=== PATIENT | male | born 1965 | race Caucasian/White ===

== ENCOUNTER 2025-05-10 07:11 | Emergency (ER) | payer MEDICARE, SELFPAY ==
[2025-05-10 07:12] VITALS: BP 165/97
--- NOTE | 2025-05-10 07:21 | ED.GENMED ---
History of Present Illness
General
Chief Complaint: Chest Pain
Source: patient
Exam Limitations: none
Time Seen by Provider: 05/10/25 07:22
History of Present Illness
History of Present Illness:
60-year-old male woke with chest pressure at 630 this morning. No radiation some mild nausea no shortness of breath. Has occasional PVCs but this has been an ongoing chronic issue. No syncope near syncope no heart racing. Currently asymptomatic.
Symptoms lasted about 30 minutes. Similar episode yesterday morning.
Past History
Past History
ED Past Medical History: HTN, Hypercholesterolemia and Other
ED Past Surgical History: Other
Social History
Tobacco: Non-smoker
Alcohol: Occasional
Drug: None
Personal: Other ()
Living: with family
Employment: Employed
Family History
Family History: CAD
Review of Systems
Review of Systems
All Other Systems: Not applicable
Constitutional: Denies fever or chills
Respiratory: Reports no symptoms
ABD/GI: Reports no symptoms
Phy Exam
Physical Exam
Physical Exam:
GENERAL: Alert and oriented in no apparent distress. Initially was setting up a computer at the table beside the hospital bed.
EYE: Orbits normal.
NECK: Supple
CARDIAC: Regular rate and rhythm without any obvious murmurs.
LUNGS: Clear breath sounds,normal
ABDOMEN: Soft, without focal tenderness or distention. Elevated BMI
NEUROLOGICAL: Alert and oriented , grossly non-focal
SKIN: Warm and dry, no rash or lesion, no discoloration, skin intact.
MUSCULOSKELETAL: No edema,no deformity.Good color
PSYCH: Normal and appropriate interaction.
Scores
Heart Score for Chest Pain Patients
STEMI patient?: No
History: Slightly or Non-Suspicious
ECG: Normal
Age: >45 - <65 years
Risk Factors: >/= 3 Risk Factors or History of CAD
Troponin: </= Normal Limit
Heart Score for Chest Pain Patients: 3
Heart Score Risk: 2.5% MACE over next 6 weeks
Course
Orders/Labs/Results
Orders:
Orders
05/10/25 07:16
Electrocardiogram (*1) Urgent
Reason for Study: Chest Pain
EKG- Treatment ONCE
05/10/25 07:30
Cardiac Monitoring- Treatment ONCE
IV Insert/Care/Rem.- Treatment PRN
Pulse Ox/cont/shift [RESP] Stat
Quantity: 1
05/10/25 07:43
Complete Blood Count/With Diff Urgent
Comprehensive Metabolic Panel Urgent
D-Dimer Urgent
Lipase Urgent
Troponin I Urgent
05/10/25 08:11
CXR2 [CR Chest - 2 Views ] Urgent
Comment:
Reason For Exam: cp
05/10/25 08:42
EKG- Treatment ONCE
05/10/25 10:55
Troponin I Urgent
05/10/25 11:00
Electrocardiogram (*1) Stat
Reason for Study: Other
Other Reason for Exam: chest pain
Abnormal Lab Results
05/10/25
07:43
RBC 4.59 L 10^6/uL
(4.70-6.10)
Chloride 110 H mmol/L
(98-107)
BUN 26 H mg/dl
(9-20)
Glucose 130 H mg/dl
(70-99)
05/10/25 07:43
05/10/25 07:43
Vital Signs
Initial and Last Documented VS:
Initial Vital Signs
Temp Pulse Resp BP Pulse Ox
98.5 F 87 18 165/97 94
05/10/25 07:12 05/10/25 07:12 05/10/25 07:12 05/10/25 07:12 05/10/25 07:12
Last Documented Vital Signs
Temp Pulse Resp BP Pulse Ox
98.5 F 74 20 141/88 93
05/10/25 07:12 05/10/25 10:00 05/10/25 10:00 05/10/25 10:00 05/10/25 10:00
MDM/Problems Addressed
Differential Diagnosis Includes:
Patient with an episode today and yesterday morning of nonexertional chest pressure. Moderate cardiac risk factors including hypertension cholesterol and family history. This chest pressure is not exertional. Exam is unremarkable. Patient feels
his left foot might be mildly swollen. Doubt PE or DVT but will check D-dimer as a screen. Warrants repeat cardiac testing in 3 hours
*Pulse Oximetry
SaO2: 94
Oxygen Mode of Delivery: Room air
Patient hypoxic: no
*EKG
Interpreted by ED Provider?: Yes
Interpretation: normal
Comparison EKG: no changes
Heart Rate: 77
Rate: normal
Rhythm: sinus
[place]: normal axis
Interval: normal interval
QRS Pattern: normal QRS
Ischemia: no ischemia
*Critical Care Note
Total Time (30-74mins, 75-104mins- exclusive of procedures): Not Applicable
Update Note
Update Note:
Repeat EKG normal sinus rhythm. No acute changes. Repeat troponin negative. Patient currently sitting up watching his computer screen. Nontoxic no distress. No current symptoms. Not describing any infectious symptoms. Highly doubt pneumonia.
Close outpatient cardiac follow-up
ED Attending Note
-
Portions of this chart may have been created with voice recognition software.� Occasional wrong word or��sound alike� substitutions may have occurred due to the inherent limitations of voice recognition software.
Discharge Plan
Departure
Patient Disposition: Home (Routine Discharge)
Date of Disposition: 05/10/25
Time of Disposition: 12:25
Patient with high blood pressure during this ER visit?: Yes
Discharge Problem:
Intermittent chest pain, Atelectasis left lung base
Instructions: Chest Pain CBC Follow Up, BLOOD PRESSURE
Prescriptions:
New
doxycycline hyclate 100 mg capsule
100 mg PO BID 10 Days Qty: 20 0RF
No Action
alprazolam 1 MG tablet
1 mg PO BID
omeprazole 20 MG capsule,delayed release(DR/EC)
20 mg PO QPM
aspirin 81 MG tablet,chewable
81 mg PO QPM
doxazosin 2 MG tablet
4 mg PO QPM
rosuvastatin 20 MG tablet
20 mg PO QPM
Referrals:
UNKNOWN - PT DOES,NOT KNOW [Family Provider]
Activity Restrictions/Additional Instructions:
The cardiac group should call you tomorrow for close follow-up
I gave you a prescription for an antibiotic. However I do not feel this is likely to be a pneumonia. Only start the antibiotic with more respiratory symptoms cough congestion fever.
Interventions
Interventions:
*Risk Screen - Suicide Last Done: 05/10/25 07:16
*General Assessment Last Done: 05/10/25 07:38
*Neglect/Abuse Screening Last Done: 05/10/25 07:16
*ED- Fall Risk Assessment Last Done: 05/10/25 07:38
*ED COVID-19 Vaccine History Last Done: 05/10/25 07:38
ED- Cardiac Assessment Last Done: 05/10/25 07:40
Discharge Date and Time
Print Language: [email or web address]
[2025-05-10 07:39] VITALS: BMI 47.1
[2025-05-10 07:47] VITALS: BP 146/87
[2025-05-10 07:52] LABS: % Basophils 0.5 % (0-2); % Eosinophils 3.2 % (0-6); % Immature Granulocytes 0.3 % (0-0.5); % Lymphocytes 22.1 % (20.5-51.1); % Monocytes 7.4 % (1.7-9.3); % Neutrophils 66.5 % (42.2-75.2); Absolute Eosinophils 0.2 10^3/uL (0-0.7); Absolute Lymphocytes 1.6 10^3/uL (1.2-3.4); Absolute Monocytes 0.6 10^3/uL (0.1-0.6); Absolute Neutrophils 4.9 10^3/uL (1.4-6.5); Hematocrit 39.1 % (39.0-52.0); Hemoglobin 13.7 g/dL (13.0-18.0); Mean Corpuscular Hgb 29.8 pg (27.0-31.0); Mean Corpuscular Volume 85.2 fL (80.0-94.0); Mean Platelet Volume 9.1 fL (7.4-10.4); Nucleated Red Blood Cells % 0 % (-); Platelet Count 211 10^3/uL (130-400); Red Blood Cell Count 4.59 10^6/uL (4.70-6.10); Red Cell Dist. Width 13.1 % (11.5-14.5); White Blood Cell Count 7.4 10^3/uL (4.8-10.8)
[2025-05-10 08:00] VITALS: BP 140/83
[2025-05-10 08:06] LABS: D-Dimer 0.34 ug/mlFEU (0.00-0.50)
[2025-05-10 08:14] LABS: ALT (SGPT) 35 U/L (0-50); AST (SGOT) 26 U/L (17-59); Albumin 4.3 g/dl (3.5-5.0); Alkaline Phosphatase 57 U/L (38-126); Blood Urea Nitrogen 26 mg/dl (9-20); Carbon Dioxide 24 mmol/L (22-30); Chloride 110 mmol/L (98-107); Estimated Creatinine Clearance > 125 ml/min; Glucose 130 mg/dl (70-99); Lipase 98 U/L (23-300); Potassium 4.1 mmol/L (3.5-5.1); Sodium 142 mmol/L (135-145); Total Bilirubin 0.6 mg/dl (0.2-1.3); Total Protein 7.2 g/dl (6.3-8.2); eGFR > 60.00
[2025-05-10 08:25] LABS: Troponin I < 0.012 ng/ml
[2025-05-10 09:00] VITALS: BP 140/85
[2025-05-10 10:00] VITALS: BP 141/88
[2025-05-10 11:52] LABS: Troponin I < 0.012 ng/ml
== END 2025-05-10 13:02 | disposition home or self-care (01) ==
LOC: EMR 07:11
PROVIDERS: EMERGENCY PHYSICIAN Emergency Medicine
DX: R07.89 Other chest pain (principal); J98.11 Atelectasis; I10 Essential (primary) hypertension; E78.00 Pure hypercholesterolemia, unspecified
CPT/HCPCS: 99285; 71046; 80053; 83690; 84484; 85025; 85379; 93005